=== PATIENT | female | born 1965 | race Caucasian/White ===

== ENCOUNTER 2023-10-10 16:39 | Emergency (ER) | payer OTHER, SELFPAY ==
[2023-10-10 16:42] VITALS: BP 177/84
--- NOTE | 2023-10-10 18:46 | ED.MUSCINJ ---
HPI-Injury
General
Chief Complaint: Extremity Pain (non-traumatic)
Source: patient
Exam Limitations: none
Time Seen by Provider: 10/10/23 18:36
History of Present Illness-Injury
Initial Injury comments:
57-year-old female presents with sudden onset pain to the right hip starting yesterday while walking and persisted today. She has a remote history of having a right total hip arthroplasty done 21 years ago. No known injury. No new or different
activity. The pain is in the lateral hip and into the groin. No associated numbness or tingling. No other complaints at this time
Past History
Past History
ED Past Medical History: Other (diverticulitis)
ED Past Surgical History: Bowel resection and Orthopedic (Right knee replacement 10/24/22)
Social History
Tobacco: Non-smoker
Personal:
Living: with family
Employment: Employed
Phy Exam
Physical Exam
Physical Exam:
General: Well-appearing female no acute respiratory distress
HEENT: Normocephalic atraumatic
Musculoskeletal exam: Right hip tender slightly laterally and anteriorly. No deformities. Increased pain with internal rotation. Hip flexion is good. Able to straight leg raise against gravity.
Vascular: Good temperature and color to the right leg
Injury Course
Orders/Labs/Results
Orders:
Orders
10/10/23 16:47
CR Hip - RT w/wo Pel 2-3 Vw* Urgent
Comment:
Reason For Exam: pain
Include a pelvis x-ray?: Yes
MDM/Problems Addressed
Differential Diagnosis Includes:
Right hip pain. Consider bursitis versus fracture versus dislocation
Patient has had a arthroplasty in the past.
I have personally visualized x-rays of the right hip which are negative for acute finding including fracture dislocation or evidence of loosening of the hardware. Patient has pain medicine at home. Will add several days of prednisone. Consider
possible bursitis versus strain.
*Critical Care Note
Total Time (30-74mins, 75-104mins- exclusive of procedures): Not Applicable
ED Attending Note
-
Portions of this chart may have been created with voice recognition software.� Occasional wrong word or��sound alike� substitutions may have occurred due to the inherent limitations of voice recognition software.
Discharge Plan
Departure
Patient Disposition: Home (Routine Discharge)
Date of Disposition: 10/10/23
Time of Disposition: 18:52
Patient with high blood pressure during this ER visit?: No
Discharge Problem:
Acute hip pain
Instructions: Muscle and Bone Pain (DC)
Prescriptions:
New
prednisone 10 mg Tablet
See Rx Instructions .ROUTE .COMPLEX Qty: 30 0RF
Rx Instructions:
Take By Mouth:
40 mg daily x3 days, 30 mg daily x3 days,
20 mg daily x3 days, 10 mg daily x3 days.
No Action
multivitamin Tablet
1 tab PO DAILY
cholecalciferol (vitamin D3) [Vitamin D3] 25 mcg (1,000 unit) Tablet
25 mcg PO DAILY
melatonin 5 mg Tablet
5 mg PO HS
Wegovy 1 mg/0.5 mL Pen Injector
2 mg SC FR
mupirocin 2 % ointment
1 applic topical BID Qty: 1 0RF
Patient Comments:
Patient started administering this medication on 10/21/22 in morning. Patient administerd this medication this morning @ 07:00 10/24/22.
docusate sodium 100 mg Capsule
100 mg PO BID Qty: 30 0RF
enoxaparin 40 mg/0.4 mL Syringe
40 mg SC DAILY Qty: 6 0RF
Rx Instructions:
Start day after discharge and continue daily until 11/06/22 for DVT prevention.
magnesium hydroxide 400 mg/5 mL Suspension
30 ml PO HS Qty: 355 0RF
Rx Instructions:
Add nightly to bowel regimen of Colace and Senna due to constipation.
famotidine 20 mg Tablet
20 mg PO HS Qty: 30 0RF
Rx Instructions:
Take nightly while on post-op pain meds to reduce GI upset.
oxycodone 10 mg Tablet
10 mg PO Q4HPRN PRN (Reason: moderate-severe pain) Qty: 35 0RF
Rx Instructions:
Dx total joint. Ongoing therapy.
sennosides [Senna Laxative] 8.6 mg Tablet
17.2 mg PO BID Qty: 30 0RF
acetaminophen [Tylenol Extra Strength] 500 mg tablet
1,000 mg PO Q6H Qty: 60 0RF
Rx Instructions:
DO NOT exceed >4000 mg daily.
ondansetron HCl 4 mg tablet
4 mg PO Q6H PRN (Reason: nausea and vomiting) Qty: 20 0RF
prednisone 10 mg tablet
40 mg PO TAPER Qty: 20 0RF
Rx Instructions:
4 TABS X 2 DAYS, 3 TABS X 2 DAYS, 2 TABS X 2 DAYS, 1 TAB X 2 DAYS, THEN STOP
cyclobenzaprine 10 mg tablet
10 mg PO BID PRN (Reason: muscle spasm) Qty: 10 0RF
Rx Instructions:
Caution with Oxycodone - can cause drowsiness.
Take only as directed.
Activity Restrictions/Additional Instructions:
Rest. Continue with your pain medicine. Use steroid as directed. Return if worse otherwise follow-up with your orthopedic doctor
Interventions
Interventions:
*Risk Screen - Suicide Last Done: 10/10/23 16:42
*General Assessment Last Done: 10/10/23 16:42
*Neglect/Abuse Screening Last Done: 10/10/23 16:42
Discharge Date and Time
Print Language: [place]
[2023-10-10 19:13] VITALS: BP 120/69
== END 2023-10-10 19:16 | disposition home or self-care (01) ==
LOC: EMR 16:39
PROVIDERS: EMERGENCY PHYSICIAN Emergency Medicine; FAMILY PHYSICIAN Internal Medicine
DX: M25.551 Pain in right hip (principal); Y93.01 Activity, walking, marching and hiking; Z96.641 Presence of right artificial hip joint; Z96.651 Presence of right artificial knee joint
CPT/HCPCS: 99283; 73502

== ENCOUNTER → 2023-11-05 10:04 | Outpatient (REF) | payer OTHER, SELFPAY | LOC: PAVMRI 10:04 | PROVIDERS: ATTENDING PHYSICIAN Pain Medicine Pain Medicine | DX: M54.50 Low back pain, unspecified (principal); M54.16 Radiculopathy, lumbar region | CPT/HCPCS: 72148 ==

== ENCOUNTER → 2024-09-30 06:57 | Outpatient (REF) | payer OTHER, SELFPAY | LOC: MRI 06:57 | PROVIDERS: ATTENDING PHYSICIAN Nurse Practitioner Acute Care; FAMILY PHYSICIAN Internal Medicine | DX: M47.816 Spondylosis without myelopathy or radiculopathy, lumbar region (principal) | CPT/HCPCS: 72148 ==